=== PATIENT | male | born 1950 ===

== ENCOUNTER 2020-06-22 05:42 | Inpatient (IN) ==
[2020-06-22] MEDS ORDERED: Buffered Lidocaine 1% SYRIN 1 ml INTRADERM ONE ×2 (06:00→06:30)
[2020-06-22] MEDS ORDERED: Lactated Ringers 1000 ml BAG 1,000 ML IV SCH (06:00)
[2020-06-22] MEDS ORDERED: ceFAZolin 2 GM PREMIX 2 GM/50 ML BAG ONE (06:30)
[2020-06-22] MEDS ORDERED: ROPIVACAINE 5 MG/ML 30 ML BTL (0.5%) ONE (07:04)
[2020-06-22] MEDS ORDERED: Midazolam 2 mg/2 ml VIAL 1 mg/ml 2 ml VIAL (2 mg) ONE ×2 (07:05→07:11)
[2020-06-22] MEDS ORDERED: Dexmedetomidine 200 mcg/2 ml 2 ml VIAL (200 mcg) ONE (07:05)
[2020-06-22] MEDS ORDERED: fentaNYL 250 mcg/5 ml 50 MCG/ML 5 ml VIAL (250 MCG) ONE (07:11)
[2020-06-22] MEDS ORDERED: Rocuronium 50 mg VIAL 10 mg/ml 5 ml VIAL (50 mg) ONE ×2 (07:11→08:57)
[2020-06-22] MEDS ORDERED: Lidocaine 1% MPF 5 ML VIAL ONE (07:14)
[2020-06-22] MEDS ORDERED: Propofol 10 MG/ML 20 ML BTL ONE (07:17)
[2020-06-22] MEDS ORDERED: Dexamethasone IV 4 MG/ML VIAL 1 ml VIAL ONE (07:17)
[2020-06-22] MEDS ORDERED: Lidocaine 2% PF 5 ML VIAL ONE (07:17)
[2020-06-22] MEDS ORDERED: Ondansetron 4 mg VIAL 2 MG/ML 2 ml VIAL ONE (07:17)
[2020-06-22] MEDS ORDERED: Phenylephrine IV 10 MG/ML 1 ml VIAL ONE (07:17)
[2020-06-22] MEDS ORDERED: Vancomycin 1,000 MG VIAL ONE ×2 (07:27→08:32)
[2020-06-22] MEDS ORDERED: Naloxone 0.4 mg VIAL 0.4 mg/ml 1 ml VIAL IV PRN (08:06)
[2020-06-22] MEDS ORDERED: HYDROmorphone 1 MG/1 ML SYRINGE IV PRN (08:06)
[2020-06-22] MEDS ORDERED: DiMENhydriNATE IV 50 mg/ml 1 ml VIAL IV PUSH PRN (08:06)
[2020-06-22] MEDS ORDERED: Acetaminophen IV 1 GM/100ML 100 ML ONE (08:43)
[2020-06-22] MEDS ORDERED: Glycopyrrolate IV 0.2 MG/ML 1 ML VIAL ONE (08:43)
[2020-06-22] MEDS: Albumin Human 5% 12.5 GM/250 ML BTL IV SCH ×4 (11:03→12:44)
[2020-06-22] MEDS ORDERED: Sugammadex 500 MG/5 ML 5 ml VIAL IV PUSH ONE (11:27)
[2020-06-22] MEDS ORDERED: Magnesium Hydroxide LIQ 30 ML UDC PO PRN (12:11)
[2020-06-22] MEDS ORDERED: oxyCODONE/Acetamin 5/325 mg TAB PO PRN ×2 (12:11)
[2020-06-22] MEDS ORDERED: Ondansetron 4 mg VIAL 2 MG/ML 2 ml VIAL IV PRN (12:11)
[2020-06-22] MEDS ORDERED: diPHENhydraMINE 25 mg TAB PO PRN (12:11)
[2020-06-22] MEDS ORDERED: diPHENhydraMINE IV 50 MG/ML 1 ml VIAL (BENADRYL) IV PRN (12:11)
[2020-06-22] MEDS ORDERED: Morphine 2 MG/ML SYRINGE IV PRN (12:11)
[2020-06-22] MEDS ORDERED: Lactulose 30 ml UDC PO PRN (12:11)
[2020-06-22] MEDS ORDERED: Ondansetron ODT 4 mg TAB 4 MG TAB PO PRN (12:11)
[2020-06-22] MEDS ORDERED: Polyethylene Glycol 3350 17 GM PACKET PO PRN (12:30)
[2020-06-22] MEDS: Lactated Ringers 1000 ml BAG 1,000 ML IV SCH ×2 (14:11→23:58)
[2020-06-22] MEDS: ceFAZolin 1 GM ADVAN 1 GM in NS 0.9% 50 ML 50 ML IVPB SCH ×2 (16:17→23:57)
[2020-06-22 16:22] LABS: Hematocrit 32 % (42-52); Hemoglobin 11.1 g/dL (14.0-18.0)
[2020-06-22] MEDS: Magnesium Hydroxide LIQ 30 ML UDC PO SCH (21:39)
[2020-06-23 06:47] LABS: Hematocrit 33 % (42-52); Hemoglobin 11.4 g/dL (14.0-18.0); Mean Platelet Volume 7.9 fL (7.4-10.4); Platelet Count 147 10^3/uL (150-450)
[2020-06-23 06:53] LABS: Calcium 9.1 mg/dL (8.6-10.3); EGFR African American 115.3 (>60); EGFR Non-African American 95.3 (>60); Potassium 4.3 mmol/L (3.5-5.0)
[2020-06-23 08:06] VITALS: BP 105/50
[2020-06-23] MEDS ORDERED: Vitamin THERAPEUTIC TAB PO SCH (09:00)
[2020-06-23] MEDS: ceFAZolin 1 GM ADVAN 1 GM in NS 0.9% 50 ML 50 ML IVPB SCH (09:23)
[2020-06-23] MEDS: Magnesium Hydroxide LIQ 30 ML UDC PO SCH (09:25)
== END 2020-06-23 11:45 | disposition home or self-care (01) | DRG 483 ==
LOC: INTOOBSV 05:42 → AA 05:42 → SSU 12:11
PROVIDERS: ADMIT Orthopaedic Surgery; ATTEND Orthopaedic Surgery